=== PATIENT | male | born 1975 | race Caucasian/White ===

== ENCOUNTER 2021-01-26 19:58 | Emergency (ER) | payer BC ==
[~2021-01-26] VITALS: Ht 190.5 cm; Wt 161.5 kg
== END 2021-01-26 22:25 | disposition home or self-care (01) ==
LOC: ED 19:58
DX: S46.211A Strain of muscle, fascia and tendon of other parts of biceps, right arm, initial encounter (principal); Z91.040 Latex allergy status; X50.0XXA Overexertion from strenuous movement or load, initial encounter; Y93.89 Activity, other specified; Y92.89 Other specified places as the place of occurrence of the external cause; Y99.8 Other external cause status

== ENCOUNTER → 2022-08-14 | Outpatient (CLI) | payer BC | END | disposition home or self-care (01) | LOC: RAD 08-13 19:04 | PROVIDERS: ATTEND Family Medicine | DX: M47.816 Spondylosis without myelopathy or radiculopathy, lumbar region (principal) ==

== ENCOUNTER → 2022-08-27 | Outpatient (CLI) | payer BC | END | disposition home or self-care (01) | LOC: US 00:28 | PROVIDERS: ATTEND Family Medicine | DX: N50.89 Other specified disorders of the male genital organs (principal); N43.2 Other hydrocele; N44.2 Benign cyst of testis; N50.3 Cyst of epididymis ==

== ENCOUNTER 2022-09-01 19:42 | Emergency (ER) | payer BC ==
[~2022-09-01] VITALS: Ht 190.5 cm; Wt 171.0 kg
[2022-09-01] MEDS ORDERED: BUPROPION HYDR150 M3 PO (20:15)
[2022-09-01] MEDS ORDERED: CEPHALEXIN500 M1 PO (21:46)
== END 2022-09-01 21:59 | disposition home or self-care (01) ==
LOC: ED 19:42
DX: S61.211A Laceration without foreign body of left index finger without damage to nail, initial encounter (principal); W26.0XXA Contact with knife, initial encounter; Y93.89 Activity, other specified; Y92.89 Other specified places as the place of occurrence of the external cause; Y99.8 Other external cause status

== ENCOUNTER → 2023-08-06 | Outpatient (CLI) | payer BC ==
[~2023-08-06] MED LIST: BUPROPION HYDR150 M3 PO; CEPHALEXIN500 M1 PO
[2023-08-06 08:12] LABS: BASO % 0.2 % (0.0-1.0); EOS # 0.2 10*3/uL (0.0-0.4); EOS % 2.7 % (1.0-4.0); LYMPH # 1.8 10*3/uL (1.3-4.4); LYMPH % 28.2 % (27.0-41.0); MEAN CELL VOLUME 94.8 fl (80.0-94.0); MEAN CORPUSCULAR HGB CONC 32.7 g/dl (33.0-37.0); MONO # 0.6 10*3/uL (0.1-1.0); MONO % 10.3 % (3.0-9.0); NEUT # 3.6 10*3/uL (2.3-7.9); NEUT % 58.3 % (47.0-73.0); PLATELET COUNT AUTOMATED 205 10*3/uL (130-400); RED BLOOD COUNT 4.64 10*6/uL (4.50-5.90); RED CELL DISTRI WIDTH 12.9 % (0-14.5); WHITE BLOOD COUNT 6.2 10*3/uL (4.8-10.8)
[2023-08-06 08:38] LABS: ALKALINE PHOSPHATASE 70 U/L (46-116); BUN 15 mg/dl (9-23); CHLORIDE 106 mmol/L (98-107); CHOLESTEROL 178 mg/dL (<200); LDL CHOLESTEROL 70 mg/dL (9-159); POTASSIUM 4.2 mmol/L (3.4-5.1); SGPT/ALT 61 U/L (5-49); TOTAL PROTEIN 6.8 gm/dL (6.0-8.0); TRIGLYCERIDES 349 mg/dl (<150); VITAMIN D, 25-HYDROXY 23.8 ng/mL (30-100)
== END ==
LOC: LAB 07:17
PROVIDERS: ATTEND Family Medicine
DX: E55.9 Vitamin D deficiency, unspecified (principal); Z68.42 Body mass index [BMI] 45.0-49.9, adult